=== PATIENT | male | born 1970 | race Caucasian/White ===

== ENCOUNTER 2019-01-09 04:37 | Emergency (ER) ==
[2019-01-09 04:41] VITALS: BP 125/73; TEMP 98; BMI 29.0
[2019-01-09] MEDS ORDERED: DECADRON 4 MG/ML SDV IM STA (04:52)
[2019-01-09] MEDS ORDERED: SILVADENE CREAM TP STA (04:53)
--- NOTE | 2019-01-09 04:54 | ED.PDOC ---
General ED Provider: Dr. ISREAL GOMEZ Chief Complaint: Non-specific Complaint Stated Complaint: Chipping dried concrete from bed and sides of truck yesterday PM Time Seen by Physician: 04:45 Mode of Arrival: Walk-In Information Source: Patient Exam Limitations: No limitations Primary Care Provider: RAVI SCOTT Nursing and Triage Documentation Reviewed and Agree: Yes Does patient meet sepsis criteria?: No System Inflammatory Response Syndrome: Not Applicable Sepsis Protocol: For patient's 13 years and over: Temp is 96.8 and below OR 101 and greater Pulse >90 BPM Resp >20/minute Acutely Altered Mental Status Are patient's symptoms suggestive of a new infection, such as: -Pneumonia -Skin, Soft Tissue -Endocarditis -UTI -Bone, Joint Infection -Implantable Device -Acute Abdominal Infection -Wound Infection -Meningitis -Blood Stream Catheter Infection -Unknown Review of Systems - Review Of Systems Constitutional: Reports: No symptoms Eyes: Reports: No symptoms Ears, Nose, Mouth, Throat: Reports: No symptoms Respiratory: Reports: No symptoms. Denies: Cough, Orthopnea, Short of air GI: Reports: No symptoms. Denies: Diarrhea, Nausea Musculoskeletal: Reports: No symptoms Skin: Reports: Lesions (Weeping lesions superficial bilateral arms; burning sensation), Rash All Other Systems: Reviewed and Negative Past Medical History - Past Medical History Endocrine: Reports: None Cardiovascular: Reports: None, Other (SVT) Respiratory: Reports: None Hematological: Reports: None Gastrointestinal: Reports: None Genitourinary: Reports: Other (epididymitis) Neuro/Psych: Reports: None Musculoskeletal: Reports: None Cancer: Reports: None Other Pertinent Past Medical History: Shoulder pain - Surgical History General Surgical History: Reports: Appendectomy, Unknown (unsure if he had congenital hernia) - Family History Family History: Reports: Unknown - Social History Smoking Status: Current every day smoker, Heavy tobacco smoker Hx Substance Use: No Alcohol Screening: Occasionally - Immunizations Tetanus Shot up to Date: Yes Physical Exam - Physical Exam Appearance: Well-appearing Ill-appearing: None Pain Distress: Mild Eyes: RONEY ENT: Oropharynx normal Neck: Supple Respiratory: Airway patent, Breath sounds clear, Breath sounds equal, Respirations nonlabored Cardiovascular: RRR, Pulses normal GI/: Soft, Nontender Musculoskeletal: Normal strength, ROM intact Skin: Warm, Dry, Normal color (Except lesions on bilateral arms) Neurological: Sensation intact, Motor intact Critical Care Note - Critical Care Note Total Time (mins): 10 Course - Course Orders, Labs, Meds: Orders Category Date Time Status Dexamethasone 4 mg/ml Inj [Decadron 4 mg/ml Sdv] MEDS 01/09/19 04:52 Discontinued 8 mg IM ONCE STA Silver Sulfadiazine [Silvadene Cream] MEDS 01/09/19 04:53 Discontinued 1 applic TP ONCE STA Medications Discontinued Medications Generic Name Dose Route Start Last Admin Trade Name Coty PRN Reason Stop Dose Admin Dexamethasone Sodium Phosphate 8 mg 01/09/19 04:52 01/09/19 05:06 Decadron 4 Mg/Ml Sdv IM 01/09/19 04:53 8 mg ONCE STA Administration Silver Sulfadiazine 1 applic 01/09/19 04:53 01/09/19 05:06 Silvadene Cream TP 01/09/19 04:54 1 applic ONCE STA Administration Vital Signs: Temp Pulse Resp BP Pulse Ox 01/09/19 04:37 98 F 72 16 125/73 96 Departure - Departure Time of Disposition: 05:03 Disposition: HOME SELF-CARE Discharge Problem: Caustic burn of skin Allergy Qualifiers: Encounter type: initial encounter Qualified Code(s): T78.40XA - Allergy, unspecified, initial encounter Instructions: Chemical Skin Burn (ED) Condition: Good Pt referred to PMD for follow-up: Yes (Call for appointment) IPMP verified?: No (N/A) Additional Instructions: Take the prednisone daily as prescribed; use the silvadine cream one or two times a day for 3 or 4 days then leave dry to air. May cover arms with clean shirt with sleves or leave open to air forearms - your choice. Ultram if needed for discomfort - otherwise tylenol and/or ibuprofen. Prescriptions: Prednisone 20 mg PO DAILYWM #12 tablet Tramadol HCl [Ultram] 50 mg PO Q6H #12 tablet Allergies/Adverse Reactions: Allergies No Known Allergies Allergy (Verified 01/09/19 04:41) Home Medications: Ambulatory Orders Prednisone 20 mg PO DAILYWM #12 tablet 01/09/19 Tramadol HCl [Ultram] 50 mg PO Q6H #12 tablet 01/09/19 Disposition Discussed With: Patient
== END 2019-01-09 05:20 | disposition home or self-care (01) ==
LOC: ED 04:37
DX: T30.4 Corrosion of unspecified body region, unspecified degree (principal); T78.40XA Allergy, unspecified, initial encounter; F17.210 Nicotine dependence, cigarettes, uncomplicated
CPT/HCPCS: 96372; 99282